=== PATIENT | female | born 1970 | race Caucasian/White ===

== ENCOUNTER 2021-12-22 17:09 | Observation (INO) | payer OTHER ==
[~2021-12-22] VITALS: Ht 162.6 cm; Wt 99.8 kg
[~2021-12-22 17:09] MED LIST: NORFLEX 100 MG100 MG PO; Voltaren Gel 1% TOP
[2021-12-22 18:08] LABS: HEMOGLOBIN 14.4 gm/dl (12.3-15.3); RED BLOOD COUNT 5.1 M/UL (4.00-5.10); WHITE BLOOD COUNT 10.1 K/UL (4.5-11.0)
[2021-12-22 18:43] LABS: BUN/CREATININE RATIO 19 (0-10)
[2021-12-23] MEDS ORDERED: PROVENTIL HFA6.7 GM INH (00:09)
[2021-12-23] MEDS ORDERED: ASPIRIN81 MG PO (00:10)
[2021-12-23 02:02] LABS: HEMOGLOBIN 12.8 gm/dl (12.3-15.3); RED BLOOD COUNT 4.66 M/UL (4.00-5.10); WHITE BLOOD COUNT 8.2 K/UL (4.5-11.0)
[2021-12-23 03:14] LABS: BUN/CREATININE RATIO 13 (0-10)
[2021-12-23] MEDS ORDERED: DILTIAZEM 24HR180 M1 PO (12:50)
== END 2021-12-23 14:01 | disposition home or self-care (01) ==
LOC: ER1 17:09 → CDU 18:53 → PROG CARE 18:53
PROVIDERS: Emergency Medicine; ADMIT Internal Medicine
DX: I48.0 Paroxysmal atrial fibrillation (principal); I47.1 Supraventricular tachycardia; I10 Essential (primary) hypertension; J45.909 Unspecified asthma, uncomplicated; R79.1 Abnormal coagulation profile; F17.210 Nicotine dependence, cigarettes, uncomplicated; Z20.822 Contact with and (suspected) exposure to COVID-19; Z79.899 Other long term (current) drug therapy; Z79.82 Long term (current) use of aspirin; Z88.1 Allergy status to other antibiotic agents; Z88.2 Allergy status to sulfonamides
CPT/HCPCS: 71045; 80053; 80061; 82550; 82553; 83735; 83880; 84100; 84439; 84443; 84484; 85025; 85379; 93005; 96374; 96375; 99285; G0378; J0153; J1650; Q9967; U0002

== ENCOUNTER 2022-03-06 10:41 | Emergency (ER) | payer OTHER ==
[~2022-03-06 10:41] MED LIST changes: +ASPIRIN81 MG PO; +DILTIAZEM 24HR180 M1 PO; +PROVENTIL HFA6.7 GM INH
[2022-03-06 11:54] LABS: HEMOGLOBIN 14.4 gm/dl (12.3-15.3); RED BLOOD COUNT 5.23 M/UL (4.00-5.10); WHITE BLOOD COUNT 9.3 K/UL (4.5-11.0)
[2022-03-06 12:35] LABS: BUN/CREATININE RATIO 13 (0-10)
[2022-03-06] MEDS ORDERED: COMPAZINE 10MG10 MG PO (13:18)
== END 2022-03-06 13:32 | disposition home or self-care (01) ==
LOC: ER1 10:41
PROVIDERS: Emergency Medicine
DX: U07.1 COVID-19 (principal); J44.9 Chronic obstructive pulmonary disease, unspecified
CPT/HCPCS: 71045; 80053; 83880; 84439; 84443; 84484; 85025; 86140; 93005; 96374; 99285; J0780; U0002

== ENCOUNTER 2022-03-19 00:06 | Emergency (ER) | payer OTHER ==
[~2022-03-19 00:06] MED LIST changes: +COMPAZINE 10MG10 MG PO
[2022-03-19 00:52] LABS: HEMOGLOBIN 13.9 gm/dl (12.3-15.3); RED BLOOD COUNT 4.99 M/UL (4.00-5.10); WHITE BLOOD COUNT 10.4 K/UL (4.5-11.0)
[2022-03-19 01:57] LABS: BUN/CREATININE RATIO 19 (0-10)
== END 2022-03-19 04:00 | disposition home or self-care (01) ==
LOC: ER1 00:06
PROVIDERS: Student in an Organized Health Care Education/Training Program
DX: R00.2 Palpitations (principal); Z88.2 Allergy status to sulfonamides
CPT/HCPCS: 71045; 80053; 82550; 82553; 83735; 84439; 84443; 84484; 85025; 93005; 99285

== ENCOUNTER 2022-04-10 08:51 | Emergency (ER) | payer OTHER ==
[2022-04-10 09:50] LABS: HEMOGLOBIN 14.4 gm/dl (12.3-15.3); RED BLOOD COUNT 5.25 M/UL (4.00-5.10); WHITE BLOOD COUNT 9.5 K/UL (4.5-11.0)
[2022-04-10 10:14] LABS: BUN/CREATININE RATIO 23 (0-10)
== END 2022-04-10 10:50 | disposition home or self-care (01) ==
LOC: ER1 08:51
PROVIDERS: Physician Assistant
DX: R00.2 Palpitations (principal); J44.9 Chronic obstructive pulmonary disease, unspecified; I48.91 Unspecified atrial fibrillation; Z79.01 Long term (current) use of anticoagulants; Z79.899 Other long term (current) drug therapy; Z88.2 Allergy status to sulfonamides; Z88.5 Allergy status to narcotic agent
CPT/HCPCS: 71045; 80053; 82550; 82553; 84439; 84443; 84484; 85025; 93005; 99285